=== PATIENT | male | born 1970 | race Caucasian/White ===

== ENCOUNTER 2020-03-21 06:15 | Emergency (ER) | payer OTHER ==
[~2020-03-21] VITALS: Ht 175.3 cm; Wt 93.0 kg
--- NOTE | 2020-03-21 06:20 | NUR ---
Patient walked in from home with c/o dizziness since thursday on and off, woke up this morning at 0430 and felt dizzy. Patient is alert and oriented, speaking in full sentences. Denies shortness of breath or chest pain at this time. No weakness noted in bilateral upper and lower extremeties. Dr. Grande at bedside for MSE. EKG done.
[2020-03-21] MEDS ORDERED: MECLIZINE HCL 25 MG TABLET ONE (06:44)
[2020-03-21] MEDS ORDERED: MECLIZINE HCL 25 MG TABLET PO ONE (06:45)
--- NOTE | 2020-03-21 06:55 | NUR ---
Hand off to BILL Duffy.
--- NOTE | 2020-03-21 07:00 | NUR ---
Received hand off and SBAR from outgoing night sift RN Pt is RA, AOx3, still c/o intermittent dizziness on supine, NAD Pending diagnostics Pt kept warm dry and comfortable
[2020-03-21 07:41] LABS: BASOPHILS % (AUTO) 0.4 % (0.0-2.0); EOSINOPHILS # (AUTO) 0.1 K/uL (0.0-0.7); EOSINOPHILS % (AUTO) 1.1 % (0.0-7.0); HEMATOCRIT 50.6 % (36.7-47.1); HEMOGLOBIN 17.3 g/dL (12.5-16.3); LYMPHOCYTES # (AUTO) 0.8 K/uL (20.0-40.0); MEAN CORPUSCULAR HEMOGLOBIN 30.1 uug (23.8-33.4); MEAN CORPUSCULAR HGB CONC 34 g/dL (32.5-36.3); MEAN CORPUSCULAR VOLUME 88.1 fL (73.0-96.2); MONOCYTES # (AUTO) 0.4 K/uL (2.0-10.0); MONOCYTES % (AUTO) 9.1 % (0.0-11.0); NEUTROPHILS # (AUTO) 3.4 K/uL (1.8-8.9); NEUTROPHILS % (AUTO) 72.4 % (38.5-71.5); PLATELET COUNT (AUTO) 193 K/uL (152-348); RED BLOOD CELL COUNT(AUTO) 5.75 MIL/uL (4.06-5.63); WHITE BLOOD COUNT (AUTO) 4.6 K/uL (3.6-10.2)
[2020-03-21 07:44] LABS: CREATININE 1.1 mg/dL (0.6-1.3); POTASSIUM 4.1 mmol/L (3.5-5.1)
[2020-03-21 07:51] LABS: BILIRUBIN,DIRECT 0.1 mg/dL (0.0-0.2); BILIRUBIN,TOTAL 0.4 mg/dL (0.2-1.0); TOTAL PROTEIN, SERUM 7.8 g/dL (6.4-8.2)
--- NOTE | 2020-03-21 08:35 | NUR ---
Patient discharged to home in stable condition. Written and verbal after care instructions given. Patient verbalizes understanding of instructions. Stressed follow up or return to ER for worsening s/s. ambulatory w/ stable gait all belongings w/ pt
[2020-03-21 08:36] VITALS: BP 138/86
== END 2020-03-21 08:37 | disposition home or self-care (01) ==
LOC: ER 06:24
DX: R42 Dizziness and giddiness (principal); I10 Essential (primary) hypertension; Z79.899 Other long term (current) drug therapy
CPT/HCPCS: 36415; 70030-TC; 70450; 83690; 85025; 85730; 93005; A4663; J8597